=== PATIENT | female | born 1980 | race American Indian/Alaskan Native ===

== ENCOUNTER 2018-11-24 17:39 | Emergency (ER) | payer BC ==
[2018-11-24] MEDS ORDERED: NACL 0.9% 1000 ML 1,000 ML IV ONE (17:53)
--- NOTE | 2018-11-24 17:53 | Emergency Department Report ---
Chief Complaint: Abdominal Pain Stated Complaint: ABD PAIN Time Seen by Provider: 11/24/18 17:51 - HPI History of Present Illness: ABD PAIN WITH N/V DRANK A LOT LAST NIGHT RX NONE LMP CURRENT PMH NONE PSH CSEC NO CIG/DRUGS POS ETOH NO ONE IN FAMILY ILL PCP - DONT KNOW MSE COMPLETED MSE screening note: Focused history and physical exam performed. Due to findings the following was ordered: ED Disposition for MSE Condition: Stable Instructions: Abdominal Pain (ED)
[2018-11-24 18:21] LABS: Basophils % (Auto) 0.3 % (0.0-1.8); Hemoglobin 12.9 gm/dl (10.1-14.3); Lymphocytes # (Auto) 1.8 K/mm3 (1.2-5.4); Lymphocytes % (Auto) 13.4 % (13.4-35.0); Mean Corpuscular HGB Conc 33 % (30-34); Mean Corpuscular Volume 94 fl (79-97); Monocytes # (Auto) 0.5 K/mm3 (0.0-0.8); Monocytes % (Auto) 3.4 % (0.0-7.3); Platelet Count 361 K/mm3 (140-440); Red Blood Count 4.14 M/mm3 (3.65-5.03); Red Cell Distribution Width 14.1 % (13.2-15.2)
[2018-11-24 18:33] LABS: Bacteria,Urine 1+ /HPF (Negative); Bilirubin,Urine NEG (Negative); Blood,Urine LG (Negative); Color,Urine Yellow (Yellow); HCG Qualitative,Urine Negative (Negative); Mucus,Urine FEW /HPF; Urobilinogen,Urine < 2.0 mg/dL (<2.0)
[2018-11-24 18:43] LABS: Alanine Aminotransferase 17 units/L (7-56); Albumin 4.6 g/dL (3.9-5); BUN/Creatinine Ratio 13; Blood Urea Nitrogen 9 mg/dL (7-17); Calcium 9.6 mg/dL (8.4-10.2); Hemolysis Index 6
[2018-11-24] MEDS ORDERED: ALUM-MAG HYDROX-SIMETH 200-200-20MG/5ML PO STA (19:42)
[2018-11-24] MEDS ORDERED: PEPCID IV ONE (19:42)
[2018-11-24] MEDS ORDERED: ZOFRAN IV ONE (19:42)
[2018-11-24] MEDS ORDERED: LIDOCAINE VISCOUS 2% PO ONE (19:43)
--- NOTE | 2018-11-24 20:19 | Emergency Department Report ---
ED General Adult HPI - General Chief complaint: Abdominal Pain Stated complaint: ABD PAIN Time Seen by Provider: 11/24/18 17:51 Source: patient Mode of arrival: Wheelchair Limitations: No Limitations - History of Present Illness Initial comments: 38-year-old [place] female to emergency Department complaining of abdominal discomfort associated with nausea and some vomiting which started last night after a night of having fallen and excessive drinking. Reports no hemoptysis, hematemesis or hematochezia. She denies any trauma. She reports no fever, chills, sweats. -: hour(s) Location: abdomen Severity scale (0 -10): 10 Improves with: none Worsens with: none Associated Symptoms: loss of appetite, nausea/vomiting. denies: confusion, chest pain, cough, diaphoresis, syncope, weakness Treatments Prior to Arrival: none - Related Data Previous Rx's Medication Instructions Recorded Last Taken Type Famotidine [Pepcid] 40 mg PO DAILY #14 tablet 11/24/18 Unknown Rx Ondansetron [Zofran ODT TAB] 8 mg PO Q12HR #14 tab.rapdis 11/24/18 Unknown Rx Allergies Allergy/AdvReac Type Severity Reaction Status Date / Time No Known Allergies Allergy Unverified 11/24/18 17:40 ED Review of Systems ROS: Stated complaint: ABD PAIN Other details as noted in HPI Constitutional: denies: chills, fever Eyes: denies: eye pain, eye discharge, vision change ENT: denies: ear pain, throat pain Respiratory: denies: cough, shortness of breath, wheezing Cardiovascular: denies: chest pain, palpitations Endocrine: no symptoms reported Gastrointestinal: abdominal pain, nausea, vomiting. denies: diarrhea, constipation, hematemesis, hematochezia Genitourinary: denies: urgency, dysuria, discharge Musculoskeletal: denies: back pain, joint swelling, arthralgia Skin: denies: rash, lesions Neurological: denies: headache, weakness, paresthesias Psychiatric: denies: anxiety, depression Hematological/Lymphatic: denies: easy bleeding, easy bruising ED Past Medical Hx - Past Medical History Previous Medical History?: No - Surgical History Past Surgical History?: Yes Additional Surgical History: - Social History Smoking Status: Current Every Day Smoker Substance Use Type: Alcohol - Medications Home Medications: Home Medications Medication Instructions Recorded Confirmed Last Taken Type Famotidine [Pepcid] 40 mg PO DAILY #14 tablet 11/24/18 Unknown Rx Ondansetron [Zofran ODT TAB] 8 mg PO Q12HR #14 tab.rapdis 11/24/18 Unknown Rx ED Physical Exam - General Limitations: No Limitations General appearance: alert, in no apparent distress - Head Head exam: Present: atraumatic, normocephalic - Eye Eye exam: Present: normal appearance, PERRL, EOMI Pupils: Present: normal accommodation - ENT ENT exam: Present: mucous membranes moist - Neck Neck exam: Present: normal inspection - Respiratory Respiratory exam: Present: normal lung sounds bilaterally. Absent: respiratory distress - Cardiovascular Cardiovascular Exam: Present: regular rate, normal rhythm. Absent: systolic murmur, diastolic murmur, rubs, gallop - GI/Abdominal GI/Abdominal exam: Present: soft, tenderness (with deep palpation. The abdomen is soft. Bowel sounds are positive. No guarding, no colon sign, no bruising), normal bowel sounds. Absent: mass, bruit, hernia - Extremities Exam Extremities exam: Present: normal inspection - Back Exam Back exam: Present: normal inspection. Absent: CVA tenderness (R), CVA tenderness (L) - Neurological Exam Neurological exam: Present: alert, oriented X3, CN II-XII intact, normal gait, other (she is alert and oriented 3 sounds sound judgment, does not appear to be intoxicated at present) - Psychiatric Psychiatric exam: Present: normal affect, normal mood - Skin Skin exam: Present: warm, dry, intact, normal color. Absent: rash ED Course Vital Signs 11/24/18 17:51 Temperature 97.7 F Pulse Rate 68 Respiratory 20 Rate Blood Pressure 129/77 O2 Sat by Pulse 99 Oximetry ED Medical Decision Making - Lab Data Result diagrams: 11/24/18 18:02 11/24/18 18:02 Critical care attestation.: If time is entered above; I have spent that time in minutes in the direct care of this critically ill patient, excluding procedure time. ED Disposition Clinical Impression: Acute gastritis, Nausea & vomiting Disposition: DC-01 TO HOME OR SELFCARE Is pt being admited?: No Does the pt Need Aspirin: No Condition: Stable Instructions: Abdominal Pain (ED), Gastritis (ED), Acute Nausea and Vomiting (ED), Abuse of Alcohol (ED) Prescriptions: Famotidine [Pepcid] 40 mg PO DAILY #14 tablet Ondansetron [Zofran ODT TAB] 8 mg PO Q12HR #14 tab.colby
[2018-11-24 21:06] VITALS: BP 105/64
== END 2018-11-24 20:35 | disposition home or self-care (01) ==
LOC: ED 17:39
DX: K29.00 Acute gastritis without bleeding (principal); R11.2 Nausea with vomiting, unspecified; F17.200 Nicotine dependence, unspecified, uncomplicated
CPT/HCPCS: 36415; 80053; 81001; 81025; 83690; 85025; 96361; 96374; 96375; 99283; J2405; J7030

== ENCOUNTER 2019-11-10 13:43 | Outpatient (CLI) | payer OTHER ==
--- NOTE | 2019-11-10 16:31 | Mammography Report ---
DIGITAL DIAGNOSTIC MAMMOGRAM WITH CAD, 11/10/2019 INDICATION: 39-year-old with left breast lump. However, the patient could not point to a specific lum p that she feels. TECHNIQUE: Digital bilateral mammographic imaging was performed. This examination was interpreted with the benefit of Computer-aided Detection analysis. COMPARISON: None. This is a baseline mammogram. FINDINGS: Breast Density: The breasts are heterogeneously dense, which may obscure small masses. There is no evidence of dominant mass, suspicious calcifications or architectural distortion in eithe r breast. IMPRESSION: No mammographic evidence of malignancy. Recommend return for a left breast ultrasound. Follow up recommendation: Ultrasound Category 0: Incomplete. Needs additional imaging evaluation and/or prior mammograms for comparison. A "normal" or negative report should not discourage follow up or biopsy of a clinically significant f inding. A written summary of these findings will be mailed to the patient. The patient will be entered into a mammography reporting system which will generate a reminder letter for the patient's next appointmen t at the appropriate interval. According to the [employer], yearly mammograms are recommended starting at age 40 and continuing as long as a woman is in good health. Breast MRI is recommended for women with an cristina roximately 20-25% or greater lifetime risk of breast cancer, including women with a strong family his tory of breast or ovarian cancer and women who have been treated for Hodgkin's disease. Signer Name: Flip Clarke MD Signed: 11/10/2019 4:26 PM Workstation Name: [id number]
== END 2019-11-10 13:44 | disposition home or self-care (01) ==
LOC: SPVWC 13:43
PROVIDERS: ATTEND Internal Medicine
DX: N63.20 Unspecified lump in the left breast, unspecified quadrant (principal)
CPT/HCPCS: 77066